=== PATIENT | female | born 1995 | race African-American/Black ===

== ENCOUNTER 2018-09-23 05:05 | Inpatient (IN) | payer SELFPAY ==
[~2018-09-23] VITALS: Ht 157.5 cm; Wt 59.0 kg
[2018-09-23] MEDS ORDERED: SODIUM CHLORIDE 0.9% 1,000 ML IV ONE (06:40)
[2018-09-23] MEDS ORDERED: FAMOTIDINE 20MG/2ML VIAL IV STA (06:40)
[2018-09-23] MEDS ORDERED: ONDANSETRON HCL 4MG/2ML INJ IV STA (06:40)
[2018-09-23] MEDS ORDERED: MORPHINE SULFATE 4 MG/ML CPJ (NOT FOR IM USE) IV STA (06:40)
[2018-09-23 07:30] LABS: HEMATOCRIT. 38.8 % (36.0-48.0); HEMOGLOBIN. 13.2 g/dL (12.0-16.0); MEAN CORPUSCULAR HEMOGLOBIN 31.8 pg (28.0-32.0); MEAN CORPUSCULAR VOLUME 93.5 fL (81.0-99.0); MEAN PLATELET VOLUME 9.4 fl (7.4-10.4); PLATELET 218 x1000/uL (130-400); RED BLOOD CELL COUNT 4.15 mill/uL (4.2-5.4); RED CELL DISTRIBUTION WIDTH 13.2 % (11.6-14.6)
[2018-09-23 07:33] LABS: CHLORIDE 108 mEq/L (98-107); INR 1.1; PROTHROMBIN TIME 11.2 sec (9.1-11.1)
[2018-09-23 07:41] LABS: HCG SCREEN NEGATIVE
[2018-09-23] MEDS ORDERED: KETOROLAC 30MG/ML VIAL IV ONE (07:45)
[2018-09-23 08:11] LABS: PLATELET ESTIMATE NORMAL
[2018-09-23 08:51] LABS: CLARITY URINE CLEAR (CLEAR); COLOR URINE YELLOW (YELLOW); KETONES URINE TRACE (NEGATIVE); LEUKOCYTE ESTERASE URINE TRACE (NEGATIVE); NITRITE URINE NEGATIVE (NEGATIVE); OCCULT BLOOD URINE NEGATIVE (NEGATIVE); PROTEIN URINE NEGATIVE (NEGATIVE); SPECIFIC GRAVITY URINE 1.016 (1.005-1.030); UROBILINOGEN URINE 0.2 E.U./dL (0.2-1.0)
[2018-09-23] MEDS ORDERED: MORPHINE SULFATE 4 MG/ML CPJ (NOT FOR IM USE) IV ONE (09:00)
[2018-09-23 13:30] VITALS: BP 103/65
[2018-09-23] MEDS: KETOROLAC 30MG/ML VIAL IV PRN ×2 (15:16→23:27)
[2018-09-23] MEDS: DEXT 5%/LACTATED RINGERS 1,000 ML IV SCH ×2 (16:08→23:27)
[2018-09-23 20:00] VITALS: BP 103/58
[2018-09-24] VITALS: BP 105/69
[2018-09-24 04:00] VITALS: BP 98/50
[2018-09-24 07:32] LABS: BASOPHILS % 0.3 % (0.0-2.0); EOSINOPHILS % 0.6 % (0.0-5.0); HEMATOCRIT. 35.3 % (36.0-48.0); HEMOGLOBIN. 12.1 g/dL (12.0-16.0); LYMPHOCYTES % 37.1 % (20.0-50.0); MEAN CORPUSCULAR HEMOGLOBIN 32.3 pg (28.0-32.0); MEAN CORPUSCULAR VOLUME 93.9 fL (81.0-99.0); MEAN PLATELET VOLUME 10.1 fl (7.4-10.4); MONOCYTES % 9.7 % (2.0-8.0); NEUTROPHILS % 52.3 % (40.0-76.0); PLATELET 198 x1000/uL (130-400); RED BLOOD CELL COUNT 3.76 mill/uL (4.2-5.4); RED CELL DISTRIBUTION WIDTH 13.3 % (11.6-14.6)
[2018-09-24 08:00] VITALS: BP 99/57
[2018-09-24] MEDS ORDERED: VASOPRESSIN 20 UNIT/ML 1ML ONE ×2 (09:27→09:29)
[2018-09-24] MEDS ORDERED: PROPOFOL 200MG/20ML VIAL IV ONE (09:34)
[2018-09-24] MEDS ORDERED: ROCURONIUM BROMIDE 10MG/ML VIAL 5ML IV ONE (09:34)
[2018-09-24] MEDS ORDERED: FENTANYL CITRATE/PF 50MCG/ML 2ML VIAL ONE ×2 (09:34→10:18)
[2018-09-24] MEDS ORDERED: NEOSTIGMINE METHYLSULFATE 1MG/ML 10 ML VIAL ONE (09:34)
[2018-09-24] MEDS ORDERED: DEXAMETHASONE 4MG/ML 1ML VIAL ONE (09:35)
[2018-09-24] MEDS ORDERED: ONDANSETRON HCL 4MG/2ML INJ ONE (09:35)
[2018-09-24] MEDS ORDERED: GLYCOPYRROLATE 0.2 MG/ML 2ML VIAL ONE (09:35)
[2018-09-24] MEDS ORDERED: MIDAZOLAM HCL 2 MG/2 ML VIAL ONE (09:35)
[2018-09-24] MEDS ORDERED: SKIN ADHESIVE 0.7 GM EA TOP ONE (10:51)
[2018-09-24] MEDS ORDERED: LIDOCAINE HCL/PF 1% 10 MG/ML 5ML VIAL ONE (10:57)
[2018-09-24] MEDS ORDERED: KETOROLAC 60MG/2ML VIAL IM SCH (11:15)
[2018-09-24] MEDS ORDERED: ONDANSETRON HCL 4MG/2ML INJ IV PRN ×2 (11:15→12:45)
[2018-09-24 12:00] VITALS: BP 122/80
[2018-09-24] MEDS ORDERED: LABETALOL 5MG/ML SYR 20 MG/4 ML SYRINGE IV PRN (12:45)
[2018-09-24] MEDS ORDERED: MEPERIDINE HCL/PF 25MG/ML CPJ IV PRN (12:45)
[2018-09-24] MEDS: HYDROMORPHONE HCL/PF 2MG/ML CPJ IV PRN ×3 (12:51→20:16)
[2018-09-24] MEDS: DEXT 5%/0.45% NACL KCL 20MEQ/L 1,000 ML IV SCH (15:16)
[2018-09-24 16:00] VITALS: BP 123/80
[2018-09-24] MEDS: KETOROLAC 30MG/ML VIAL IV PRN (16:43)
[2018-09-24 20:00] VITALS: BP 114/57
[2018-09-24] MEDS ORDERED: IOHEXOL-350 100 ML BOTTLE ONE (22:27)
[2018-09-25] MEDS: KETOROLAC 30MG/ML VIAL IV PRN ×2 (01:58→20:29)
[2018-09-25] MEDS ORDERED: HYDROCODONE/ACETAMINOPHEN 10/325MG TABLET PO PRN (03:15)
[2018-09-25] MEDS ORDERED: THROAT LOZENGES-BENZOCAINE/MENTH/CETYLPYRD CL LOZENGES MM PRN (03:15)
[2018-09-25] MEDS: DEXT 5%/0.45% NACL KCL 20MEQ/L 1,000 ML IV SCH ×3 (03:51→18:14)
[2018-09-25 04:00] VITALS: BP 106/51
[2018-09-25] MEDS ORDERED: PHENOL/SODIUM PHENOLATE 1.4% SRPAY 177ML MT PRN (05:00)
[2018-09-25 07:58] LABS: BASOPHILS % 0.1 % (0.0-2.0); EOSINOPHILS % 0.1 % (0.0-5.0); HEMATOCRIT. 33.7 % (36.0-48.0); HEMOGLOBIN. 11.4 g/dL (12.0-16.0); LYMPHOCYTES % 22.7 % (20.0-50.0); MEAN CORPUSCULAR HEMOGLOBIN 31.7 pg (28.0-32.0); MEAN CORPUSCULAR VOLUME 93.7 fL (81.0-99.0); MEAN PLATELET VOLUME 10.1 fl (7.4-10.4); MONOCYTES % 8.2 % (2.0-8.0); NEUTROPHILS % 68.9 % (40.0-76.0); PLATELET 190 x1000/uL (130-400); RED BLOOD CELL COUNT 3.59 mill/uL (4.2-5.4); RED CELL DISTRIBUTION WIDTH 12.9 % (11.6-14.6)
[2018-09-25 08:00] VITALS: BP 102/55
[2018-09-25] MEDS: HYDROMORPHONE HCL/PF 2MG/ML CPJ IV PRN (09:18)
[2018-09-25 12:02] VITALS: BP 106/70
[2018-09-25 16:00] VITALS: BP 108/61
[2018-09-25 16:18] LABS: HEMATOCRIT 32.1 % (36.0-48.0); HEMOGLOBIN 11.1 g/dL (12.0-16.0); MEAN CORPUSCULAR HEMOGLOBIN 32.5 pg (28.0-32.0); MEAN CORPUSCULAR VOLUME 94.3 fL (81.0-99.0); PLATELET 180 x1000/uL (130-400)
[2018-09-25 20:00] VITALS: BP 116/70
[2018-09-26] VITALS: BP 95/66
[2018-09-26 04:00] VITALS: BP 98/58
[2018-09-26] MEDS: DEXT 5%/0.45% NACL KCL 20MEQ/L 1,000 ML IV SCH (05:25)
[2018-09-26 08:00] VITALS: BP 110/56
[2018-09-26] MEDS: KETOROLAC 30MG/ML VIAL IV PRN (08:48)
[2018-09-26 12:00] VITALS: BP 110/64
[2018-09-26 12:01] VITALS: BP 110/56
== END 2018-09-26 12:58 | disposition home or self-care (01) | DRG 513 ==
LOC: ER 05:05 → 6EST 10:57 → ENRESERV 12:51
PROVIDERS: ADMIT Specialist; ATTEND Specialist
PROC: 0UC04ZZ Extirpation of Matter from Right Ovary, Percutaneous Endoscopic Approach (ICD-10-PCS; 2018-09-24)
PROC: 0UB04ZZ Excision of Right Ovary, Percutaneous Endoscopic Approach (ICD-10-PCS; principal; 2018-09-24 07:30)
DX: N83.11 Corpus luteum cyst of right ovary (principal); K66.1 Hemoperitoneum; R07.0 Pain in throat; M25.511 Pain in right shoulder; M25.512 Pain in left shoulder; R06.02 Shortness of breath
CPT/HCPCS: 36415; 71045; 71275; 74176; 76830; 76856; 84703; 85027; 93005; 96361; 96374; 96375; 96376; 99285; C1725; J1100; J1170; J1885; J2250; J2270; J2405; J2704; J2710; J3010; J3490; J7030; J7121; Q9967